=== PATIENT | female | born 1980 | race Caucasian/White ===

== ENCOUNTER → 2016-09-25 | Outpatient (CLI) | payer OTHER ==
[2016-09-25 14:57] LABS: URINE APPEARANCE CLEAR (CLEAR); URINE BILIRUBIN NEG (NEG); URINE COLOR YELLOW; URINE NITRITE NEG (NEG); URINE PH 5.5 (4.5-7.5); UROBILINOGEN NEG (NEG)
[2016-09-25 15:07] LABS: MANUAL MICROSCOPIC REQUIRED? NO; REVIEW REQ? NO
== END | disposition home or self-care (01) ==
LOC: C.LABSPEC 13:44
PROVIDERS: ATTEND Obstetrics & Gynecology
DX: O09.519 Supervision of elderly primigravida, unspecified trimester (principal)

== ENCOUNTER → 2016-10-03 | Outpatient (CLI) | payer OTHER ==
[2016-10-03 12:44] LABS: BASO % 0.2 %; BASO ABS # 0.01 K/uL (0-0.2); COMPLETE YES; EOS % 0.8 %; HEMATOCRIT 39.6 % (37-47); IG% 0.3 %; LYMPH % 24.4 %; LYMPH ABS # 1.54 K/uL (1.2-3.4); MEAN CELL VOLUME 88.4 fL (80-100); MEAN CORPUSCULAR HEMOGLOBIN 29.7 pg (25-34); MEAN CORPUSCULAR HGB CONC 33.6 g/dl (32-36); MEAN PLATELET VOLUME 10.1 fL (7.4-10.4); MONO % 7.3 %; PLATELET COUNT 283 K/uL (130-400); RED BLOOD COUNT 4.48 M/uL (4.2-5.4); WHITE BLOOD COUNT 6.32 K/uL (4.8-10.8)
== END ==
LOC: C.LAB1850 09:44
PROVIDERS: ATTEND Obstetrics & Gynecology
DX: O09.519 Supervision of elderly primigravida, unspecified trimester (principal)

== ENCOUNTER → 2016-10-03 | Outpatient (CLI) | payer OTHER ==
[2016-10-05 01:19] LABS: CHLAMYDIA TRACH RNA*** NOT DETECTED (NOT DETECTED); GC (NEIS GONORRHOEAE)RNA** NOT DETECTED (NOT DETECTED)
== END ==
LOC: C.LABSPEC 10:47
PROVIDERS: ATTEND Obstetrics & Gynecology
DX: O09.519 Supervision of elderly primigravida, unspecified trimester (principal)

== ENCOUNTER → 2016-10-13 | Outpatient (CLI) | payer OTHER ==
[~2016-10-13] MED LIST: LEVE750T PO
== END | disposition home or self-care (01) ==
LOC: C.LAB1850 07:41
PROVIDERS: ATTEND Physician Assistant
DX: G40.209 Localization-related (focal) (partial) symptomatic epilepsy and epileptic syndromes with complex partial seizures, not intractable, without status epilepticus (principal); Z51.81 Encounter for therapeutic drug level monitoring; Z79.899 Other long term (current) drug therapy

== ENCOUNTER → 2016-12-01 | Outpatient (CLI) | payer OTHER ==
[~2016-12-01] MED LIST changes: +PRENTAB26 PO
== END | disposition home or self-care (01) ==
LOC: C.LAB1850 07:16
PROVIDERS: ATTEND Physician Assistant
DX: O99.350 Diseases of the nervous system complicating pregnancy, unspecified trimester (principal); Z3A.00 Weeks of gestation of pregnancy not specified; G40.909 Epilepsy, unspecified, not intractable, without status epilepticus

== ENCOUNTER → 2016-12-04 | Outpatient (CLI) | payer OTHER ==
[2016-12-04 15:04] LABS: GTGD 50 Grams
== END | disposition home or self-care (01) ==
LOC: C.LAB1850 09:27
PROVIDERS: ATTEND Obstetrics & Gynecology
DX: O09.511 Supervision of elderly primigravida, first trimester (principal); Z3A.00 Weeks of gestation of pregnancy not specified

== ENCOUNTER → 2016-12-27 | Outpatient (CLI) | payer OTHER | END | disposition home or self-care (01) | LOC: C.PAPS 16:22 | PROVIDERS: ATTEND Obstetrics & Gynecology | DX: Z12.4 Encounter for screening for malignant neoplasm of cervix (principal) ==

== ENCOUNTER → 2017-02-21 | Outpatient (CLI) | payer OTHER ==
[2017-02-21 16:54] LABS: HEMATOCRIT 32.8 % (37-47)
[2017-02-21 18:21] LABS: URINE APPEARANCE CLEAR (CLEAR); URINE BILIRUBIN NEG (NEG); URINE COLOR YELLOW; URINE EPITHELIAL CELL AUTO >30 /lpf (0-5); URINE NITRITE NEG (NEG); URINE SPECIFIC GRAVITY 1.025 (1.000-1.030); UROBILINOGEN NEG (NEG)
[2017-02-21 18:39] LABS: MANUAL MICROSCOPIC REQUIRED? NO; REVIEW REQ? NO
[2017-02-21 19:00] LABS: GTGD 50 Grams
== END | disposition home or self-care (01) ==
LOC: C.LAB1850 15:30
PROVIDERS: ATTEND Obstetrics & Gynecology
DX: O09.512 Supervision of elderly primigravida, second trimester (principal); Z3A.00 Weeks of gestation of pregnancy not specified

== ENCOUNTER → 2017-03-09 | Outpatient (CLI) | payer OTHER | END | disposition home or self-care (01) | LOC: C.LAB1850 07:06 | PROVIDERS: ATTEND Psychiatry & Neurology Neurology | DX: O99.350 Diseases of the nervous system complicating pregnancy, unspecified trimester (principal); Z3A.00 Weeks of gestation of pregnancy not specified ==

== ENCOUNTER 2017-05-14 05:28 | Inpatient (IN) | payer BC ==
[~2017-05-14] VITALS: Ht 160 cm; Wt 73.2 kg
[2017-05-24] MEDS ORDERED: LACTATED RINGER'S 1000ML 1,000 ML IV PRN (08:13)
[2017-05-24 08:32] VITALS: Ht 160 cm; Wt 73.2 kg
[2017-05-24] MEDS ORDERED: FENTANYL 2MCG/ML ROPIV 1.25MG/ML 100ML BAG EPI ONE (08:56)
[2017-05-24] MEDS ORDERED: FENTANYL CITRATE INJ 50 MCG/1 ML 2 ML VIAL ONE ×2 (08:56→10:10)
[2017-05-24] MEDS ORDERED: BUPIVACAINE 0.25% 30 ML VIAL ONE (08:56)
[2017-05-24] MEDS ORDERED: EpHEDrine SULFATE INJ 50 MG/ML AMP ONE (08:56)
[2017-05-24] MEDS ORDERED: PENICILLIN G POTASSIUM IV 6 MU in DEXTROSE 5% 250ML 250 ML IV ONE (09:00)
[2017-05-24 09:14] LABS: HEMATOCRIT 34.1 % (37-47); MEAN CELL VOLUME 84.4 fL (80-100); MEAN CORPUSCULAR HEMOGLOBIN 27.5 pg (25-34); MEAN CORPUSCULAR HGB CONC 32.6 g/dl (32-36); MEAN PLATELET VOLUME 10.7 fL (7.4-10.4); PLATELET COUNT 190 K/uL (130-400); RED BLOOD COUNT 4.04 M/uL (4.2-5.4)
[2017-05-24] MEDS: LACTATED RINGER'S 1000ML 1,000 ML IV SCH ×3 (09:48→19:28)
[2017-05-24] MEDS ORDERED: NALOXONE HCL INJ 1 MG in SODIUM CHLORIDE 0.9% 1000ML 1,000 ML IV PRN (10:20)
[2017-05-24] MEDS ORDERED: LACTATED RINGER'S 1000ML 500 ML IV PRN ×2 (10:20→14:22)
[2017-05-24] MEDS ORDERED: NALOXONE HCL INJ 0.4 MG/1 ML VIAL/CARP IV PRN (10:30)
[2017-05-24] MEDS ORDERED: DiphenhydrAMINE HCL 50 MG/ML VIAL IV PRN (10:30)
[2017-05-24] MEDS ORDERED: EpHEDrine SULFATE INJ 50 MG/ML AMP IV PRN (10:30)
[2017-05-24] MEDS ORDERED: NALBUPHINE HCL INJ 10 MG/ML AMP IV PRN (10:30)
[2017-05-24] MEDS ORDERED: LEVE750T PO (10:38)
[2017-05-24] MEDS: PENICILLIN G POTASSIUM IV 3 MU in DEXTROSE 5% 100ML 100 ML IV PRN ×3 (12:55→20:50)
[2017-05-24] MEDS: FENTANYL 2MCG/ML ROPIV 1.25MG/ML 100ML BAG EPI PRN ×4 (13:23→19:17)
[2017-05-24] MEDS ORDERED: LEVETIRACETAM 250 MG TAB PO SCH (14:00)
[2017-05-24] MEDS ORDERED: OXYTOCIN 30 UNITS/500ML NSS IV PRN ×2 (14:30→23:00)
[2017-05-24] MEDS ORDERED: SUPERCREAM 0.870 % 15GM JAR EXT PRN (23:00)
[2017-05-24] MEDS ORDERED: OXYCODONE/ACETAMINOPHEN 5-325 TAB PO PRN (23:00)
[2017-05-24] MEDS ORDERED: HYDROCORTISONE ACETATE 25 MG SUPP PR PRN (23:00)
[2017-05-24] MEDS ORDERED: LANOLIN OINT EXT PRN ×2 (23:00)
[2017-05-24] MEDS ORDERED: BENZOCAINE 20% AER SPR 82.5 GM CAN EXT PRN (23:00)
[2017-05-24] MEDS ORDERED: ACETAMINOPHEN/CODEINE 300/30MG TAB PO PRN ×2 (23:00)
[2017-05-24] MEDS ORDERED: ACETAMINOPHEN 325 MG TAB PO PRN (23:00)
--- NOTE | 2017-05-24 23:36 | DELIVERY SUMMARY ---
DATE OF OPERATION: 05/24/2017 PREOPERATIVE DIAGNOSES: 1. Intrauterine at 41 and 3/7 weeks. 2. Active labor. POSTOPERATIVE DIAGNOSES: 1. Intrauterine at 41 and 3/7 weeks. 2. Active labor. 3. Prolonged active phase. PROCEDURES: 1. Epidural anesthesia. 2. Pitocin augmentation. 3. Normal spontaneous vaginal delivery. 4. Second degree perineal laceration with repair. SURGEON: Gisela Wilson MD ANESTHESIA: Epidural. ESTIMATED BLOOD LOSS: 450 mL. PROCEDURE: The patient presented to labor and delivery in active labor at 4 to 5 cm dilated. She was admitted. She underwent an epidural anesthetic. She progressed slowly thereafter requiring Pitocin augmentation. She did rupture for clear fluid spontaneously. She progressed to complete-complete and 0 to +1 station and was allowed to labor down for approximately an hour when she was +3 station. The patient then pushed for approximately 2 hours to deliver viable female infant in REAL presentation. During the course of pushing, there were deep variables noted with contractions. Towards the end, patient had a variable deceleration to the 70s with the contraction that did not come back with scalp stem, and this persisted through the next contraction. The patient was at +4 in REAL position. The bladder had recently been drained of 250 mL of clear yellow urine. I advised patient that I thought assist with the vacuum would be helpful given the persistence of the heart rate in the 70s. Over the next contraction, the vacuum was applied and suction was applied, but there was not good application and the vacuum did not hold on to the scalp. The patient therefore pushed spontaneously through this contraction. The heart rate after this contraction was in the 130s. Nonetheless, I applied the vacuum over the next contraction and it immediately popped off. I do not think it got very good application because of caput. The patient really pushed hard after this episode and over the next 2 contractions, delivered a viable female infant in REAL presentation. The anterior shoulder was immediately delivered and after the anterior shoulder was delivered and part of the body, a big bunch of cord that had been bunched up under the neck was delivered with the rest of the body. There was an immediate cry. The nose and mouth were bulb suctioned. The was placed on the maternal abdomen for drying and attention. At 1 minute of life, the cord was clamped and cut. Cord blood in segment were obtained. Placenta was delivered spontaneously intact with a 3-vessel cord. Cervix, sulci, and rectum were examined and found to be intact. Second degree perineal laceration was repaired with 3-0 Vicryl in normal standard fashion. Hemostasis obtained with dilute Pitocin and fundal massage. Estimated blood loss was 450 mL. Apgars were 8 and 9. Mother and baby doing well at the end of the delivery. I attest to the content of the Intraoperative Record and any orders documented therein. Any exception s are noted below.
[2017-05-25 01:00] VITALS: BP 106/57; PULSE 103; TEMP 36.9
[2017-05-25] MEDS: IBUPROFEN 600 MG TAB PO PRN ×4 (01:14→22:39)
--- NOTE | 2017-05-25 02:39 | Anesthesia Procedure Note ---
Anesthesia Epidural Removal Nt Date & Time May 25, 2017 at 02:39 Vital Signs Pain Intensity: 2.0 Vital Signs Past 12 Hours Date Time Temp Pulse Resp B/P (MAP) Pulse Ox O2 Delivery O2 Flow Rate FiO2 05/25/17 01:00 36.9 103 20 106/57 (73) Room Air 05/25/17 01:00 Room Air Notes Mental Status: alert / awake / arousable, participated in evaluation Nausea / Vomiting: adequately controlled Pain: adequately controlled Airway Patency, RR, SpO2: stable & adequate BP & HR: stable & adequate Hydration State: stable & adequate Neuraxial Anesthesia: was administered, sensory block is resolved Anesthetic Complications: no major complications apparent, pt satisfied with anesthetic care Epidural: removed without complications, with tip intact
[2017-05-25 04:20] VITALS: BP 116/79; PULSE 67; TEMP 36.6
[2017-05-25 06:41] LABS: HEMATOCRIT 28.3 % (37-47)
--- NOTE | 2017-05-25 06:48 | Medical Student: [facility] ---
Med Student [employer] Progress Nt Date of Service May 25, 2017. Subjective Notes: 37yo post- day 1 of at 41-3. Pt is feeling "great." Ambulating w/o lightheadedness or dizziness. Eating a regular diet w/o nausea or vomiting. Slept OK last night. No BM since delivery. Voiding w/o difficulty or pain. Bleeding/lochia described by pt as a "heavy period". Pt will most likely bottle feed . Denies fever, chills, and calf pain. Rest of ROS is negative. Objective Vital Signs Date Time Temp Pulse Resp B/P (MAP) Pulse Ox O2 Delivery O2 Flow Rate FiO2 05/25/17 04:20 36.6 67 20 116/79 (91) Room Air 05/25/17 01:00 36.9 103 20 106/57 (73) Room Air 05/25/17 01:00 Room Air Physical Exam General Appearance: WELL-APPEARING, WD/WN, NO APPARENT DISTRESS Respiratory/Chest: lungs clear, normal breath sounds Cardiovascular: regular rate, rhythm, no murmur Abdomen: normal bowel sounds, non tender, soft Fundus: Firm, Non-Tender, Relation to Umbilicus (midline at umbilicus) Extremities: normal inspection, no pedal edema, no calf tenderness Laboratory Results Last 24 Hours Test 05/24/17 08:58 05/25/17 06:16 White Blood Count 9.70 K/uL Red Blood Count 4.04 M/uL Hemoglobin 11.1 g/dL 9.2 g/dL Hematocrit 34.1 % 28.3 % Mean Corpuscular Volume 84.4 fL Mean Corpuscular Hemoglobin 27.5 pg Mean Corpuscular Hemoglobin Concent 32.6 g/dl RDW Standard Deviation 42.9 fL RDW Coefficient of Variation 14.1 % Platelet Count 190 K/uL Mean Platelet Volume 10.7 fL Assessment and Plan Post- Day Number: 1 Continue Routine Care: 37yo day 1: vital signs reviewed and WNL Hgb 11.1 on admission; 9.2 this AM- stable A+/GBS+/RI Continue to monitor lochia/bleeding, pain, and healing from second degree perineal laceration. Control pain with Motrin/Tylenol.
--- NOTE | 2017-05-25 07:28 | Progress Note ---
Subjective May 25, 2017. Subjective conversation w/ patient, physical exam, chart review, lab review Ambulation: ambulating normally Voiding: no voiding problems Passing Gas: Yes Diet Tolerance: Regular Diet Lochia: Moderate Feeding Type: Breast Feeding Pain: CONTROLLED Review of Systems Respiratory: No shortness of breath Cardiac: No chest pain Abdomen: No nausea, No vomiting Female : No dysuria Objective Vital Signs Date Time Temp Pulse Resp B/P (MAP) Pulse Ox O2 Delivery O2 Flow Rate FiO2 05/25/17 04:20 36.6 67 20 116/79 (91) Room Air 05/25/17 01:00 36.9 103 20 106/57 (73) Room Air 05/25/17 01:00 Room Air Physical Exam General Appearance: WELL-APPEARING, WD/WN, NO APPARENT DISTRESS Respiratory/Chest: lungs clear, normal breath sounds, no respiratory distress Cardiovascular: regular rate, rhythm, no JVD Abdomen: non tender, soft Fundus: Firm, Tender (APPROPRIATELY TENDER), Relation to Umbilicus (AT U) Extremities: non-tender, normal inspection Laboratory Results Last 24 Hours Test 05/24/17 08:58 05/25/17 06:16 White Blood Count 9.70 K/uL Red Blood Count 4.04 M/uL Hemoglobin 11.1 g/dL 9.2 g/dL Hematocrit 34.1 % 28.3 % Mean Corpuscular Volume 84.4 fL Mean Corpuscular Hemoglobin 27.5 pg Mean Corpuscular Hemoglobin Concent 32.6 g/dl RDW Standard Deviation 42.9 fL RDW Coefficient of Variation 14.1 % Platelet Count 190 K/uL Mean Platelet Volume 10.7 fL Assessment and Plan Post- Day#: 1 Continue Routine Care: now 1, 41 3/7 12/7 at 2200 A+/RI/GBS + Hgb 11.1, today pending. Pt doing well clinically, desires to stay one more night. Encourage ambulation, , control pain. Routine post care. KAYLA BHATT FMR PGY 1 Resident Physician Supervision Note: I interviewed and examined the patient. Discussed with Dr. Bhatt and agree with findings and plan as documented in the note. Any exceptions or clarifications are listed here: Doing well. Routine care. Documented By: Gisela Wilson Resident Tracking Resident Involvement: Resident Care Provided Care Provided: OB Delivery
[2017-05-25 08:00] VITALS: BP 112/75; PULSE 65; TEMP 36.6
[2017-05-25] MEDS: DOCUSATE SODIUM 100 MG CAP PO SCH ×2 (08:17→19:59)
[2017-05-25] MEDS: PRENATAL VITAMIN TAB PO SCH (08:17)
[2017-05-25] MEDS: LEVETIRACETAM 250 MG TAB PO SCH ×2 (08:17→19:59)
[2017-05-25] MEDS ORDERED: DIPHTHERIA/TETANUS/PERTUSSIS 0.5 ML SYR/VIAL IM. ONE (09:00)
--- NOTE | 2017-05-25 10:07 | Discharge Instructions ---
Discharge Instructions Date of Service May 25, 2017. Admission Reason for Admission: LABOR Discharge Discharge Diagnosis / Problem: Spontaneous Vaginal Delivery Discharge Goals Goal(s): Routine recovery after delivery Medications Continue Dispensed Medications: supercream, dermaplast, tucks, lansinoh Activity Recommendations Activity Limitations: per Instructions/Follow-up section . Instructions / Follow-Up Instructions / Follow-Up ACTIVITY RECOMMENDATIONS: * Gradual return to full activity over the next 2-3 weeks. * No lifting - nothing heavier than baby over the next 2-3 weeks. * Do not engage in vigorous exercise, sexual activity or sports until cleared by your physician. * Do not drive or operate any motorized equipment until cleared by your physician. * You may shower/bathe daily. MEDICATIONS: For discomfort or pain, you may use Acetaminophen (Tylenol), Ibuprofen (Advil), or Naproxen (Aleve) following the package directions. For constipation you may use Colace following the package directions. BREAST CARE: If you are not breast feeding: * Wear a supportive bra 24 hours a day for one to two weeks. * Avoid stimulating your breasts and nipples as much as possible during the first few weeks after delivery. * When taking a shower, have the warm water hit your back, not breasts. * When your breasts feel full, apply ice packs. Usually three to four times a day helps ease the discomfort. * Take a mild pain medication (Tylenol / Motrin) when you are uncomfortable. If breast feeding: * Use breast milk to lubricate nipples. Lansinoh cream may be used for sore nipples. You do not need to remove cream prior to breast feeding. If using a different brand of cream, check the label for directions regarding removal of cream prior to nursing. * Wear a supportive bra. * If having problems with breasts or breast feeding, call a data processing systems consultant or your health care provider. EPISIOTOMY CARE: After delivery, if you have an episiotomy (stitches), the following steps will ease discomfort and aid healing. * For the first 24 hours after delivery, place ice packs next to your episiotomy to help reduce swelling. * After the first 24 hour-period, sitz baths, either portable or in the tub, are suggested. A shower with a shower arm sprayed over the episiotomy may be comforting. * Khushbu care should be done after each voiding and bowel movement. Squirt warm water from a plastic bottle over the perineum (region of the body between the anus and urinary opening) and pat dry. * Use Dermoplast to ease discomfort. Shake container. [place] directly over the episiotomy. Place a Tucks on a clean sanitary pad next to your episiotomy. SPECIAL CARE INSTRUCTIONS: When you are discharged from the hospital, it is important for you to follow the instructions listed below: * During the first week at home, you should be able to care for yourself and your baby. In addition, the usual light household activities are encouraged. * Limit your activities to the way you feel. Do not try to clean the house or move furniture. Be sensible. * If you actively engage in sports and have done so up until the time of your delivery, you may resume these activities as soon as you feel able. This may take up to one month or even longer. Use good judgment. * Continue to take your vitamins for at least six weeks after the of your baby. * Your diet need not be limited unless you were on a special diet before your delivery. Breast-feeding mothers need around 2500 calories per day and at least 64-80 ounces of fluid per day (8 to 10 glasses). * You should eat foods from the four major food groups. Crash diets or fad diets are to be avoided. Eating lean meats, fresh fruits and vegetables, low-fat dairy products, high fiber foods and a regular exercise program, will help you get back to your pre- weight without putting your health at risk. * Constipation is sometimes a problem after delivery. Take a mild laxative as needed. If breast feeding, Milk of Magnesia is acceptable to use. You may use a suppository or Fleets enema if no episiotomy. * A daily shower or tub bath is suggested. Be sure to thoroughly and gently dry the perineum. * A bloody vaginal discharge will usually continue until around four weeks post . A small amount of bleeding may continue for as long as six weeks. Vaginal discharge changes from the bright red bleeding after delivery to pink then brownish and finally yellowish-pink before becoming white and disappearing. * Bleeding may increase with activity. Your first period may come in 4-8 weeks. If you are breast feeding, your period may be delayed even longer. * [place] (sex) can begin whenever both you and your partner feel comfortable and do not have any form of genital infection. It is recommended that you wait at least six weeks for internal and external healing to occur. If you have questions, please talk to your health care practitioner. A condom should be used to prevent infection and . * Foreplay, gentle intercourse and lubrication is very important the first several times to prevent pain. A water-based lubricant such as K-Y jelly or Astroglide may be used. * If you have RH negative blood and your baby is RH positive, you will receive RHOGAM by injection prior to discharge. The nurse will give you a card to keep with you that has the date and place that you received RHOGAM after delivery. * During your care, you had a Rubella screen done to check for the presence of rubella antibodies in your blood. If your test was negative, you will receive a Rubella vaccine prior to discharge. This vaccine may cause a fever, soreness at the injection site and flu-like symptoms. If these symptoms persist, notify your health care practitioner. is not advised for one month after a Rubella vaccine. * Verbalizes understanding of car seat law as reviewed with patient nursing. * Car Seat hand-out given and reviewed with patient by nursing. * Shaken baby information reviewed with patient by nursing. Call you doctor if: * Heavy bleeding (saturating several pads an hour) or passing clots the size of your fist. * A fever >101 degrees F (38.3 degrees C) on two occasions four hours apart and /or chills. * Unusual pain in the pelvic or vaginal areas. * "Baby Blues" lasting longer than two weeks. If you have any questions or concerns, call your health care practitioner at . FOLLOW UP VISIT: * Please call the office at to schedule a 6 week examination. It is important you keep this appointment. It is important for you to make arrangements for either yearly or twice yearly check-ups thereafter. Current Hospital Diet Patient's current hospital diet: Regular OB Diet Discharge Diet Recommended Diet: Regular OB Diet Pending Studies Studies pending at discharge: no Medical Emergencies . Who to Call and When: Medical Emergencies: If at any time you feel your situation is an emergency, please call 911 immediately. . Non-Emergent Contact Non-Emergency issues call your: Primary Care Provider . . "Provider Documentation" section prepared by Xenia Bhatt. . VTE Core Measure Inpt VTE Proph given/why not?: Treatment not indicated
[2017-05-25 11:00] VITALS: BP 125/80; PULSE 82; TEMP 36.5
[2017-05-25 16:00] VITALS: BP 121/84; PULSE 76; TEMP 36.7
[2017-05-25 20:00] VITALS: BP 117/80; PULSE 79; TEMP 36.7
[2017-05-26] VITALS: BP 122/81; PULSE 65; TEMP 36.4
--- NOTE | 2017-05-26 07:08 | Progress Note ---
Subjective May 26, 2017. Subjective conversation w/ patient, physical exam, chart review, lab review Ambulation: ambulating normally Voiding: no voiding problems Passing Gas: Yes Diet Tolerance: Regular Diet Lochia: Moderate Feeding Type: Bottle Feeding Pain: controlled Review of Systems Respiratory: No shortness of breath Female : No dysuria Objective Vital Signs Date Time Temp Pulse Resp B/P (MAP) Pulse Ox O2 Delivery O2 Flow Rate FiO2 05/26/17 00:00 36.4 65 18 122/81 (95) 05/26/17 00:00 Room Air 05/25/17 20:00 36.7 79 18 117/80 (92) 05/25/17 16:00 36.7 76 18 121/84 (96) Room Air 05/25/17 16:00 Room Air 05/25/17 11:00 36.5 82 16 125/80 (95) Room Air 05/25/17 08:00 36.6 65 18 112/75 (87) Room Air 05/25/17 07:45 Room Air Physical Exam General Appearance: WELL-APPEARING, WD/WN, NO APPARENT DISTRESS Respiratory/Chest: lungs clear, normal breath sounds, no respiratory distress Cardiovascular: regular rate, rhythm, no gallop Abdomen: normal bowel sounds, soft Fundus: Firm, Non-Tender, Relation to Umbilicus (1 below U) Extremities: non-tender, normal inspection Assessment and Plan Post- Day#: 2 Continue Routine Care: Resident Physician Supervision Note: I interviewed and examined the patient. Discussed with [Name of resident] and agree with findings and plan as documented in the note. Any exceptions or clarifications are listed here: [None] Documented By: Catalina Ruelas now 1, 41 3/7 12/ at 2200 A+/RI/GBS + Hgb 11.1, 9.2, stable. Pt doing well clinically. Encourage ambulation, , control pain. Routine post care. Pt counselled on dc instructions. KAYLA MOLINA FMR PGY 1 Resident Tracking Resident Involvement: Resident Care Provided Care Provided: OB Delivery
[2017-05-26] MEDS ORDERED: PRENTAB26 PO (07:09)
[2017-05-26] MEDS: IBUPROFEN 600 MG TAB PO PRN (07:58)
[2017-05-26] MEDS: PRENATAL VITAMIN TAB PO SCH (07:59)
[2017-05-26] MEDS: LEVETIRACETAM 250 MG TAB PO SCH (07:59)
[2017-05-26] MEDS: DOCUSATE SODIUM 100 MG CAP PO SCH (07:59)
[2017-05-26 08:00] VITALS: BP 123/87; PULSE 73; TEMP 36.4
[2017-05-26 13:28] VITALS: BP_DIAS 87; PULSE 73; TEMP 36.4
== END 2017-05-26 14:10 | disposition home or self-care (01) | DRG 775 ==
LOC: C.LD 05-24 07:38 → C.OBG 05-25 01:00
PROVIDERS: ADMIT Obstetrics & Gynecology; ATTEND Obstetrics & Gynecology
PROC: 0KQM0ZZ Repair Perineum Muscle, Open Approach (ICD-10-PCS; principal; 2017-05-24)
PROC: 10D07Z6 Extraction of Products of Conception, Vacuum, Via Natural or Artificial Opening (ICD-10-PCS; principal; 2017-05-24)
DX: O48.0 Post-term pregnancy (principal); O63.1 Prolonged second stage (of labor); O70.1 Second degree perineal laceration during delivery; O09.513 Supervision of elderly primigravida, third trimester; O99.350 Diseases of the nervous system complicating pregnancy, unspecified trimester; G40.909 Epilepsy, unspecified, not intractable, without status epilepticus; Z37.0 Single live birth; Z22.330 Carrier of Group B streptococcus; Z3A.41 41 weeks gestation of pregnancy

== ENCOUNTER → 2017-06-19 | Outpatient (CLI) | payer BC | END | disposition home or self-care (01) | LOC: C.LAB1850 11:10 | PROVIDERS: ATTEND Psychiatry & Neurology Neurology | DX: O99.350 Diseases of the nervous system complicating pregnancy, unspecified trimester (principal); Z3A.00 Weeks of gestation of pregnancy not specified ==